=== PATIENT | male | born 1950 | race Caucasian/White ===

== ENCOUNTER → 2020-09-09 | Outpatient (CLI) | payer MEDICARE, SELFPAY | END | disposition home or self-care (01) | PROVIDERS: Referring Provider Otolaryngology Otolaryngology/Facial Plastic Surgery; Visit Provider Otolaryngology Otolaryngology/Facial Plastic Surgery | DX: J02.9 Acute pharyngitis, unspecified (principal) | CPT/HCPCS: 87070 ==

== ENCOUNTER 2020-10-01 07:25 | Day surgery (SDC) | payer MEDICARE, OTHER, SELFPAY ==
[2020-09-18 09:48] VITALS: BMI 31.5
--- NOTE | 2020-09-28 13:27 | EKG12_ITS ---
Test Reason : PRE OP Blood Pressure : / mmHG Vent. Rate : 069 BPM Atrial Rate : 069 BPM P-R Int : 164 ms QRS Dur : 108 ms QT Int : 394 ms P-R-T Axes : 049 -60 057 degrees QTc Int : 422 ms Normal sinus rhythm Left anterior fascicular block Abnormal ECG Confirmed by ANNIE HUI, TULIO ([id number]), fashion editor SOLANGE MIMS ([id number]) on 09/29/2020 10:57:19 AM Referred By: DEMAR Confirmed By:TULIO VALENCIA MD
[2020-10-01] VITALS (8 sets, daily range): BP systolic 98–147; BP diastolic 55–93; PULSE 60–86; RESP 16–18; TEMP 36.1–37; O2SAT 92–97; BMI 30.8
[2020-10-01] MEDS: Lactated Ringers 1,000 ML 100 ML IV ×2 (07:57→14:02)
--- NOTE | 2020-10-01 08:00 | HP_ITS ---
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 Ambrose Myrick MD) Smoking Status: Never smoker alcohol intake: never substance use type: does not use HPI HPI Surgical H&P: Yes HPI: CHARLETTE OROZCO, is a 70 M who presents to the office today for Evaluation of a right inguinal bulge. Patient stated that earlier this year he has noticed he had a bulge in his right inguinal area it is big progressively getting larger he is noticed some discomfort with it. He has had no change in his bowel or bladder habits. He cannot really recall any obvious trauma which gave this bulge to him. ROS General General: No weight change, appetite, fatigue, colon cancer, breast cancer or weakness HEENT HEENT: No difficulty swallowing, eye injury, eye surgery, swollen glands or hoarseness Endo Endocrine: No thyroid disease, diabetes mellitus, thyroid cancer, Hair loss, heat intolerance or cold intolerance Skin Skin: No rash or changing moles Breast Breast: No left breast lump, right breast lump, nipple discharge, breast pain, abnormal mammogram, abnormal US or breast enlargement Musc Musculoskeletal: No back problems, arthritis, rheumatoid arthritis, gout or joint pain Cardio Cardiovascular: No murmur, pacemaker, heart disease, atrial fibrillation, high blood pressure, heart attack, heart stent, palpitations, shortness of breat with exertion or chest pain Psych Psychiatric: No depression, anxiety or hearing voices Resp Respiratory: No shortness of breath, No sleep apnea, No cough, No COPD, No asthma, No emphysema, No wheezing Gastro Gastrointestinal: Yes abdominal pain, No nausea or vomiting, No diarrhea, No constipation, No blood in stool, No acid reflux, Yes hemorrhoids, Yes ulcers, No gallbladder problem, No black,tarry stools Bong Hematologic: No blood thinners, No blood disorders, No bleeding, No anemia, No blood clots Neuro Neurologic: No system reviewed and no additional complaints, except as docu, No as per HPI, No abnormal walking, No abnormal hearing, No abnormal movements, No abnormal speech, No behavioral changes, No burning sensations, No confusion, No seizure-like activity, No unsteadiness, No dizziness, No localized weakness, No frequent falls, No headache(s), No lack of coordination, No loss of vision, No memory loss, No numbness, No other visual disturbances, No radiating pain, No restless legs, No sensory deficit, No fainting, No tingling, No tremor(s), No weakness, No other Exam Const General: no acute distress, well developed, well hydrated Orientation: oriented to person, oriented to place, oriented to time [facility] Head: normocephalic, atraumatic Ears: external ears normal Mouth: moist mucous membranes Eyes Sclera: sclerae normal Pupils: normal by confrontation Neck Neck: no lymphadenopathy noted Neck mass: No Thyroid: thyroid normal, symmetrical Chest Chest palpation & inspection: normal inspection of the chest Breast Palpation: No nipple discharge Resp Effort & Inspection: normal respiratory effort Auscultation: clear to auscultation bilaterally Percussion: percussion normal Cardio Rate: regular rate Rhythm: regular rhythm Heart Sounds: no murmurs GI Palpation: soft, no hepatosplenomegaly, no masses, tender Rectal Exam: other Other: Bilateral inguinal hernias are identified. The larger is on the right than the left. Both of them are easily reducible. Rectal exam deferred. Extrem General: normal to inspection, no clubbing, cyanosis or edema Assessment & Plan Problems 1. Non-recurrent bilateral inguinal hernia without obstruction or gangrene K40.20 Plan My plan is to perform a Robotically assisted laparoscopic bilateral inguinal hernia repair with mesh. The planned surgical procedure was discussed extensively with the patient. The risks, benefits, anticipated outcomes and possible complication were mentioned. The patient understands that all hernia repair surgery has a chance of recurrence and/or chronic post-operative pain. My staff has also explained the procedure in understandable terms and the patient was given the option to take printed material concerning the planned procedure. The patient had the opportunity to ask questions concerning the planned procedure. The patient freely consents to the planned procedure. Coding Level of Care Code Off vis,new,level 3 Diagnoses Non-recurrent bilateral inguinal hernia without obstruction or gangrene K40.20 ??Obstruction and gangrene presence: without obstruction or gangrene ??Recurrence: non-recurrent I have re-examined the patient. There are no clinical changes since date of exam.
[2020-10-01] MEDS: Cefazolin 2 GM in 0.9% Normal Saline 100 ML IV (09:23)
[2020-10-01] MEDS: Bupivacaine Mpf 0.5% 30 ML VIAL (11:15)
--- NOTE | 2020-10-01 12:40 | PCM.DC.HER ---
Discharge Diet: Light diet - advance as tolerated Discharge Activity: Return to Normal Activity, May Drive - when you are no longer taking narcotic pain medications., May Shower - with the bandage in place 1-2 days after surgery. Lifting Restrictions: 20 pounds for 8 weeks. Additional Activity Instructions:: Climbing stairs is fine, walking is encouraged. Sitting in bed may be uncomfortable. Sitting up using your lateral muscles (sitting up sideways) is usually more comfortable. Do not drive, work heavy equipment of sign legal documents for 24 hours. If your hernia repair was an ingunial repair, you may have scrotal swelling, an ice pack and/or athletic support can provide more comfort. Pain medications may cause nausea, you should typically eat light foods as you take your pain medications. Pain medications may also cause constipation. If you have difficulty with this, discuss with your doctor. Call your doctor if your incision/area has: Continuous Slow Oozing, Sudden Increased Bleeding, Increased Pain/ Swelling, Increased Redness, Foul Smelling Discharge Call your doctor if you observe: Fever of 101 or Higher Suture Line Care: Avoid Pulling/Pushing, Avoid Pinching/Bending Additional Dressing/Incision Instructions:: Leave the operative bandage on for 2-3 days. When you remove the bandage, leave the steri-strips on place until your follow up appointment or they fall off. Allergies/Adverse Reactions: Allergies No Known Allergies Allergy (Unverified 10/01/20 07:43) Medications to take at Discharge Cyanocobalamin [Vitamin B12] 500 mcg PO DAILY 09/24/20 Pumpkin Seed Oil/Saw [place] [Saw [place] 160 mg Softgel] 1 cap PO BID 09/24/20 Pyridoxine HCl (Vitamin B6) [Vitamin B-6] 25 mg PO DAILY 09/24/20 Selenium 100 mcg PO DAILY 09/24/20 Ubiquinol 1 tab PO DAILY 09/24/20 Oxycodone HCl/Acetaminophen [Percocet 5/325] 1 - 2 tab PO Q4H PRN PRN 6 Days #30 tab 10/01/20 Oxycodone HCl/Acetaminophen [Percocet 5/325] 1 tab PO Q4H PRN PRN 6 Days #30 tab 10/01/20 The following prescriptions were given: Oxycodone HCl/Acetaminophen [Percocet 5/325] 1 - 2 tab PO Q4H PRN PRN 6 Days #30 tab PRN Reason: Pain Transmission Status: Received by [facility] Oxycodone HCl/Acetaminophen [Percocet 5/325] 1 tab PO Q4H PRN PRN 6 Days #30 tab PRN Reason: Pain Transmission Status: Received by [facility] Primary Care Physician: Eileen Constantino PA-C [Primary Care Provider] - Test Results: Test results from this visit will be discussed in further detail at your follow-up appointment, if applicable. Please Follow Up With: Ambrose Myrick MD - [phone] When: Plan to have a follow up appointment in 7 days. Call to schedule.
[2020-10-01] MEDS: Acetaminophen 325 MG Tablet PO (12:46)
[2020-10-01] MEDS: oxyCODONE 5 MG Tablet PO (12:49)
--- NOTE | 2020-10-01 12:58 | PCM.OPRPT ---
Problem List (1) Bilateral inguinal hernia (BIH) Status: Acute Qualifiers: Obstruction and gangrene presence: without obstruction or gangrene Recurrence: non-recurrent Qualified Code(s): K40.20 - Bilateral inguinal hernia, without obstruction or gangrene, not specified as recurrent Report of Operation Date of Procedure: 10/01/20 Pre-Operative Diagnosis: Bilateral inguinal hernias Post-Operative Diagnosis: Same Surgery/Procedure Performed:: Robotic assisted laparoscopic bilateral inguinal herniorrhaphies with mesh Type of Anesthesia:: General Anesthesiologist: Bladimir Garcia Estimated Blood Loss (mL): < 25 cc Description of Procedure: Patient was brought into the operating room. Placed in the supine position. Under excellent general trach intubation the abdomen was sterilely prepped draped in usual fashion. Local was injected above the umbilicus. Incision was made dissection was carried down to the fascia the fascia grasped with a [place] varies needle was placed inside the abdomen the abdomen was insufflated to 15 torr. #8 trocar was placed without difficulty. It was flank by 2 other #8 trochars which were placed under direct visualization without injury to underlying structures. Patient was placed in the headdown position. The robot was brought in and docked appropriately. Patient was noted to have 2 large indirect inguinal hernias. I started on the right side I scored the peritoneum dissected down to Glenn's ligament I had a nice plane here very little blood loss I then dissected further laterally above note in this indirect inguinal hernia was the cecum and the appendix. I was able to dissect the hernia sac free from the cord and vessel structures and then dissected further laterally. Identify the cord and vessel structures these remained intact and looked viable. I had a nice place to place my mesh. I then went to the left side. I had to take down some adhesions from the sigmoid colon to get to the peritoneum. Once again scored the peritoneum dissected down to Glenn's ligament connected to the side. Then dissected further laterally brought the hernia sac down dissected free from the cord and vessel structures. Patient was noted to have a rather large lipoma in this hernia sac. I then dissected further laterally having a nice flat plane to place my mesh. 2 pieces of mesh were brought into the operating field I opened them placing them in the pelvis area they laid completely flat. I overlapped them medially. I had good coverage down to Glenn's ligament and laterally as well as superiorly. I then closed the mesenteric rent with 3 OV lock in running fashion starting laterally and going medially both on the left and the right side. I covered the mesh completely and there was no rents. Good in the stasis was noted. Trochars were removed pneumostasis was noted. Skin incisions were closed with subcuticular stitches of 4 Monocryl. Steri-Strips were applied sterile dressings were applied and the patient tolerated the procedure well. - Admit VTE Documentation VTE Present on Admission: No VTE Mechan Device Prophylaxis: SCD's VTE Pharm Prophylaxis ordered?: No Reason prophylaxis not ordered:: Treatment Not Indicated [id number]: [id number] Lap ing hernia repair init - Modifier 50
== END 2020-10-01 14:36 | disposition home or self-care (01) ==
LOC: SDC 07:26 → AC 07:27
PROVIDERS: PCP Family Medicine; Referring Provider Surgery; Visit Provider Surgery
PROC: (CPT 49650; principal; 2020-10-01 09:15)
DX: K40.20 Bilateral inguinal hernia, without obstruction or gangrene, not specified as recurrent (principal)
CPT/HCPCS: 00840; 49650; 87426; 93005; C9803; J7120

== ENCOUNTER 2023-08-04 10:42 | Emergency (ER) | payer MEDICARE, OTHER, SELFPAY ==
[2023-08-04 10:44] VITALS: BP 141/80; PULSE 71; RESP 18; TEMP 35.8; O2SAT 98
[2023-08-04 11:05] VITALS: BMI 32.1
--- NOTE | 2023-08-04 11:34 | EX.ED.DYSGE1 ---
HPI History of Present Illness Chief Complaint: Dizziness Informant: patient Narrative Narrative: 73-year-old male with history of back pain, chronic tinnitusWith prior back and neck surgery presenting with dizziness. States he woke up and when he shifted in bed he became very dizzy. He states he felt like the room was spinning, he had a hard time focusing his eyes and he then vomited. He states that he has a headache/pressure on the top of his head. Notes he went to bed about 11 PM last night and felt fine. Denies any history of vertigo. Denies associated numbness or tingling. Denies any acute hearing changes. Denies any recent illness. No other complaint or concern at this time. Any head injuries or recent falls. Is not on any blood thinners. States he follows with a primary care doctor and recently had a physical and everything was fine. [facility] Medical History Bilateral inguinal hernia Hemorrhoids Right groin pain Home Medications meclizine 25 mg tablet 25 mg PO 4X/DAY PRN PRN Dizziness #20 tabs 08/04/23 [Rx Last Taken Unknown] Allergy/AdvReac Type Severity Reaction Status Date / Time No Known Allergies Allergy Verified 08/04/23 10:44 Family History Father Cancer prostate cancer Surgical History History of back surgery History of cervical spinal surgery history robotic assisted bilateral inguinal herniorrhaphy (~10/01/20) Social History Smoking Status: Never smoker alcohol intake: never substance use type: does not use ROS ROS ED Constitutional Constitutional ED: Denies chills or fever(s) Eyes Eyes: Reports change in vision; Denies blurry vision or diplopia ENT ENT ED: Reports other Details: Chronic tinnitus ; Denies ear pain, rhinorrhea or sore throat Cardiovascular Cardiovascular: Denies chest pain or palpitations Respiratory/Chest Respiratory/Chest: Denies cough or dyspnea Gastrointestinal Gastrointestinal: Reports nausea and vomiting; Denies abdominal pain Musculoskeletal Musculoskeletal: Denies arthralgias or myalgias Integumentary Denies rash Neurologic Neurologic: Reports headache(s); Denies paresthesias or weakness Hematologic/Lymphatic Hematologic/Lymphatic: Denies anemia or easy bleeding EXAM Physical Exam Const Vital Signs: 08/04/23 10:44 Temperature 96.5 F L Temperature Source Temporal Pulse Rate 71 Respiratory Rate 18 Blood Pressure 141/80 H Blood Pressure Mean 100 Pulse Ox 98 Oxygen Delivery Method Room Air Positive well nourished and well developed General Appearance ED: well developed and NAD HEENT Reports TM's clear and moist mucous membranes HEENT Narrative: Normal oropharynx Tympanic Membrane ED: Yes TM's clear Eyes PERRL and EOMs intact bilaterally Eyes Narrative: Bilateral fatiguing horizontal nystagmus with leftward gaze, this reproduces the patient's symptoms Neck supple and no JVD Chest Wall inspection of chest normal and palpation of chest normal Resp normal respiratory effort and clear to auscultation bilaterally Cardio regular rate, regular rhythm and no murmurs GI normal to inspection, nondistended, normoactive bowel sounds and non-tender Extremity normal to inspection General Extremety ED: Negative for edema General Extremity: Negative for edema Neuro oriented x3, CN's II-XII intact bilaterally and no sensory deficits noted Neuro Narrative: Normal finger-nose, normal coordination. Normal [id number]. No visual field cut. NIH equals 0 Sensorium / Orientation: alert Motor Exam: strength 5/5 throughout Psych mental status grossly normal Skin no rashes or lesions noted and no wounds MDM MDM MDM Narrative Medical decision making narrative: Patient is evaluated for sudden onset of vertigo. Physical exam highly consistent with peripheral vertigo. Initially not able to perform [place]-Hallpike maneuvers secondary to symptoms. We will give a dose of meclizine and reevaluate.. Patient counseled on the pathophysiology of peripheral vertigo and the expected course. Will be given outpatient ENT follow-up. Seen in the [facility] with improvement of symptoms. Does have a positive [place]-Hallpike maneuver to the left. Protocol EKG was obtained which is not consistent with any significant arrhythmia or ischemic changes. I still do not think patient needs a metabolic work-up for his dizziness at this time. I will be discharged with a prescription for meclizine and outpatient ENT follow-up. Patient states he is established with Dr. Belcher and counseled that that is fine to follow-up with him. Is given information on the Thao maneuver. Given Return precautions. Patient and verbalized agreement understand this plan. Rhythm Strip Rhythm Strip: Sinus Rhythm Rate: 76 Ectopy: None EKG Initial EKG: Attestation: I personally reviewed and interpreted this EKG as follows: Interpretation: Sinus Rhythm Comments: Normal sinus rhythm at a rate of 76 bpm Left axis deviation Incomplete right bundle branch block with a left anterior fascicular block Minimal voltage criteria for LVH Normal ST segments Compared to prior EKG on patient now has LVH criteria and the incomplete right bundle tracy block but no acute ischemic changes Discharge Plan Triage Chief Complaint: Dizziness Other Complaint: Nausea/Vomiting Vision Prob ED Provider: Amalia Meng Dx/Rx/DC Orders Clinical Impression: Peripheral positional vertigo Instructions: ED BPV Vertigo Prescriptions: New meclizine 25 mg tablet 25 mg PO 4X/DAY PRN PRN (Reason: Dizziness) Qty: 20 0RF Primary Care Provider: Eileen Constantino Referrals: Neel Corrales MD [Med Staff - Active Staff] - As Needed Eileen Constantino PA-C [Primary Care Provider] - Activity Restrictions/Additional Instructions: Given a printout on how to do the Thao maneuver (exercise for your inner ear). Do this as tolerated. You can do it a couple times a day until your symptoms have resolved. If your symptoms do not resolve please follow-up with the ear nose and throat doctor.
[2023-08-04] MEDS: Meclizine HCl 25 MG Tablet PO (11:53)
[2023-08-04] MEDS: Ondansetron ODT 4 MG Tablet PO (12:08)
[2023-08-04 12:50] VITALS: PULSE 68; RESP 16; O2SAT 99
== END 2023-08-04 12:55 | disposition home or self-care (01) ==
PROVIDERS: Emergency Provider Emergency Medicine; PCP Family Medicine; Visit Provider Emergency Medicine
DX: H81.399 Other peripheral vertigo, unspecified ear (principal); Z98.890 Other specified postprocedural states; H93.19 Tinnitus, unspecified ear
CPT/HCPCS: 90471; 93005; 99285